=== PATIENT | female | born 1995 | race Caucasian/White ===

== ENCOUNTER 2023-03-25 14:46 | Emergency (ER) | payer BC, MEDICAID ==
[2023-03-25 15:59] LABS: BASOPHILS PERCENT AUTO 0.4 % (0.0-1.5); EOSINOPHILS ABSOLUTE AUTO 0.1 K/uL (0.0-0.7); EOSINOPHILS PERCENT AUTO 2.3 % (0.0-7.0); HEMATOCRIT 38.9 % (36.0-46.0); LYMPHOCYTES ABSOLUTE AUTO 1.7 K/uL (0.6-2.4); LYMPHOCYTES PERCENT AUTO 32.9 % (16.0-40.0); MEAN CORPUSCULAR HEMOGLOBIN 30.1 pg (27.0-32.0); MEAN CORPUSCULAR HGB CONC 33.4 g/dL (31.0-37.0); MONOCYTES ABSOLUTE AUTO 0.2 K/uL (0.0-0.8); MONOCYTES PERCENT AUTO 4.3 % (0.0-15.0); NEUTROPHILS ABSOLUTE AUTO 3.2 K/uL (1.4-5.7); NEUTROPHILS PERCENT AUTO 60.1 % (48.0-80.0); NRBC ABSOLUTE 0 K/uL; PLATELET COUNT,PLT 253 K/uL (150-400); RED BLOOD CELL COUNT 4.32 M/uL (4.30-5.90); WHITE BLOOD CELL COUNT,WBC 5.29 K/uL (4.0-11.0)
[2023-03-25 16:52] LABS: ALBUMIN 3.8 g/dL (3.4-5.0); BILIRUBIN TOTAL 0.2 mg/dL (0.2-1.0); CALCIUM 8.7 mg/dL (8.5-10.1); CARBON DIOXIDE,CO2 25.4 mmol/L (21.0-32.0); CREATININE 0.8 mg/dL (0.6-1.0); EST CRCL DRUG DOSING (CG) 107.5 mL/min; POTASSIUM,K 3.9 mmol/L (3.5-5.1); PROTEIN TOTAL,TP 7.7 g/dL (6.4-8.2)
[2023-03-25 17:20] LABS: APPEARANCE,URINE CLEAR; BILIRUBIN,URINE NEGATIVE (NEGATIVE); COLOR,URINE YELLOW; GLUCOSE,URINE NEGATIVE (NEGATIVE); KETONES,URINE NEGATIVE (NEGATIVE); LEUKOCYTE ESTERASE,URINE NEGATIVE (NEGATIVE); NITRITE,URINE NEGATIVE (NEGATIVE); OCCULT BLOOD,URINE TRACE-INTACT (NEGATIVE); PROTEIN,URINE NEGATIVE (NEGATIVE); UROBILINOGEN,URINE 0.2 EU/dL (<2.0)
[2023-03-25 17:58] LABS: BACTERIA,URINE RARE (NEGATIVE); EPITHELIAL CELLS,URINE FEW (NONE-FEW); MUCUS,URINE LIGHT (NONE-MOD); WBC,URINE 0-2 (0-5/HPF)
== END 2023-03-25 19:16 | disposition home or self-care (01) ==
LOC: MW.ED 14:46
DX: O20.9 Hemorrhage in early pregnancy, unspecified (principal); Z67.20 Type B blood, Rh positive; Z88.0 Allergy status to penicillin; Z88.1 Allergy status to other antibiotic agents; Z3A.00 Weeks of gestation of pregnancy not specified
CPT/HCPCS: 36415; 76817; 76817-26; 80053; 81001; 84702; 85025; 86900; 86901; 99284

== ENCOUNTER 2023-07-10 09:59 | Day surgery (SDC) | payer MEDICAID ==
[2023-07-10] MEDS ORDERED: Sodium Chloride 0.9% 1,000 ML IV ONE ×3 (10:10→12:24)
[2023-07-10 10:31] LABS: BASOPHILS ABSOLUTE AUTO 0.02 K/uL (0.00-0.20); BASOPHILS PERCENT AUTO 0.3 % (0.0-1.0); EOSINOPHILS ABSOLUTE AUTO 0.09 K/uL (0.00-0.45); EOSINOPHILS PERCENT AUTO 1.3 % (0.0-6.0); HEMATOCRIT 36.1 % (37.0-47.0); HEMOGLOBIN 12.5 g/dL (12.0-16.0); IMMATURE GRAN ABSOLUTE AUTO 0.01 K/uL (0.00-0.05); IMMATURE GRAN PERCENT AUTO 0.1 % (0.0-0.4); LYMPHOCYTES ABSOLUTE AUTO 1.16 K/uL (1.00-4.80); LYMPHOCYTES PERCENT AUTO 16.9 % (24.0-44.0); MEAN CORPUSCULAR HEMOGLOBIN 30.5 pg (28.0-32.0); MEAN CORPUSCULAR HGB CONC 34.6 g/dL (32.0-36.0); MEAN PLATELET VOLUME 8.9 fL (9.4-12.3); MONOCYTES ABSOLUTE AUTO 0.34 K/uL (0.00-0.80); MONOCYTES PERCENT AUTO 4.9 % (0.0-8.0); NEUTROPHILS ABSOLUTE AUTO 5.25 K/uL (1.80-7.70); NEUTROPHILS PERCENT AUTO 76.5 % (41.0-71.0); PLATELET COUNT,PLT 204 K/uL (150-400); WHITE BLOOD CELL COUNT,WBC 6.87 K/uL (3.9-11.3)
[2023-07-10 11:10] LABS: A/G RATIO 0.9 (0.9-1.6); ALBUMIN 3.7 g/dL (3.4-5.0); BILIRUBIN TOTAL 0.2 mg/dL (0.2-1.0); CALCIUM 8.9 mg/dL (8.5-10.1); CARBON DIOXIDE,CO2 27.1 mmol/L (21.0-32.0); CREATININE 0.9 mg/dL (0.6-1.0); EST CRCL DRUG DOSING (CG) 94.72 mL/min; POTASSIUM,K 3.8 mmol/L (3.5-5.1); PROTEIN TOTAL,TP 7.7 g/dL (6.4-8.2)
[2023-07-10] MEDS ORDERED: Acetaminophen 325 MG Tab PO PRN (13:25)
[2023-07-10] MEDS ORDERED: ceFAZolin 2 GM in Sodium Chloride 0.9% 50 ML IV ONE (13:25)
[2023-07-10] MEDS ORDERED: Lactated Ringers 1,000 ML IV SCH (13:30)
[2023-07-10] MEDS ORDERED: Ketorolac 30 MG/ML SDV IVPUSH SCH (13:30)
[2023-07-10] MEDS ORDERED: Dexamethasone 4 MG/ML 5 ML MDV ONE (13:42)
[2023-07-10] MEDS ORDERED: propofoL 50 ML ONE (13:42)
[2023-07-10] MEDS ORDERED: Rocuronium Bromide 50 MG/5 ML Syringe ONE (13:42)
[2023-07-10] MEDS ORDERED: Ketorolac 30 MG/ML SDV ONE (13:42)
[2023-07-10] MEDS ORDERED: fentaNYL 250 MCG/5 ML SDV ONE (13:42)
[2023-07-10] MEDS ORDERED: Ondansetron 4 MG/2 ML SDV ONE (13:42)
[2023-07-10] MEDS ORDERED: Propofol 200 MG/20 ML SDV ONE (13:42)
[2023-07-10] MEDS ORDERED: Lidocaine 2% 11 ML Jelly Filled Syringe ONE (13:45)
[2023-07-10] MEDS ORDERED: Ibuprofen 800 MG Tab PO PRN ×2 (14:14→16:17)
[2023-07-10] MEDS ORDERED: ceFAZolin 2 GM Vial ONE (14:49)
[2023-07-10] MEDS ORDERED: ePHEDrine 50 MG/ML SDV ONE (14:51)
[2023-07-10] MEDS ORDERED: Sugammadex Sodium 200 MG/2 ML VIAL ONE (15:00)
== END 2023-07-10 17:32 | disposition home or self-care (01) ==
LOC: MW.ED 09:59 → MW.SDS 13:19 → MW.ED 14:25 → UNDOADMOB 16:16 → MW.OB 16:16 → MW.SDS 17:32 → UNDODISOB 17:32
PROVIDERS: ATTEND Obstetrics & Gynecology
DX: O03.4 Incomplete spontaneous abortion without complication (principal); N93.9 Abnormal uterine and vaginal bleeding, unspecified; I95.9 Hypotension, unspecified; R00.0 Tachycardia, unspecified; Z88.0 Allergy status to penicillin
CPT/HCPCS: 36415; 59812; 76817; 80053; 84702; 85025; 86850; 86900; 86901; 93005; 96360; 96361; 99291; A9270; J0131; J0690; J1100; J1885; J2405; J2704; J3010; J3490; J7030; 01965; 93010